=== PATIENT | female | born 1970 | race Caucasian/White ===

== ENCOUNTER 2016-12-14 15:47 | Emergency (ER) | payer OTHER ==
[~2016-12-14] VITALS: Ht 165.1 cm; Wt 86.5 kg
[~2016-12-14 15:47] MED LIST: ACCUPRIL10 MG PO; ACYCLOVIR400 MG PO; ATORVASTATIN CA20 MG PO; ATORVASTATIN CA40 MG PO; B COMPLETE1 EACH PO; CARAFATE100 MG/ML PO; CELEXA20 MG PO; CLARITIN,ALAVAR10 MG PO; CLOPIDOGREL75 MG PO; COLACE100 MG PO; CRESTOR20 MG PO; CYMBALTA30 MG PO; CYMBALTA60 MG PO; CYTOTEC200 MCG PO; DILAUDID2 MG PO; DONNATAL1 TABLET PO; DOXYCYCLINE HY100 M3 PO; FLEXERIL10 MG PO; FLOMAX0.4 MG PO; GABAPENTIN300 MG PO; GLUCOPHAGE500 MG PO; LORTAB 5-325 M1 EACH PO; LORTAB 5-500 T1 EACH PO; MEDROL DOSEPAK4 MG PO; MISOPROSTOL200 MCG PO; NEURONTIN300 MG PO; NORCO 5/3251 TABLET PO; NORTRIPTYLINE H10 MG PO; PAXIL10 MG PO; PAXIL20 MG; PAXIL40 MG PO; PERCOCET 5/31 TABLET PO; PREDNISONE10 MG PO; PREVACID30 MG PO; PROMETHAZINE HC25 M1 PO; SYNTHROID75 MCG PO; TOPAMAX100 MG PO; TOPAMAX25 MG PO; TRAMADOL HCL50 MG PO; ULTRAM50 MG PO; VALTREX PO; VALTREX1000 MG PO; VICODIN 5-3001 EACH PO; VITAMIN D31000 UNI2 PO; ZOFRAN ODT4 MG PO; ZOFRAN4 MG PO
[2016-12-14 16:10] LABS: HEMATOCRIT 43.6 % (36.0-46.0); MCH 31.2 PG (29.0-34.0); MCHC 34.9 G/DL (30.0-36.0); MCV 89.5 FL (83-99); MEAN PLAT.VOLUME 10.2 uM^3 (9.5-12.4); PLATELET COUNT 252 K/uL (156-360); RBC DIS.WIDTH-CV 12.7 % (11.8-14.6); RBC DIS.WIDTH-SD 40.6 % (39-53); RED BLOOD COUNT 4.87 M/uL (3.80-5.20); WHITE BLOOD COUNT 10.7 K/uL (4.1-10.2)
[2016-12-14 16:19] LABS: CHLORIDE 107 mEq/L (99-109); SODIUM 137 mEq/L (136-147)
[2016-12-14 16:21] LABS: GLUCOSE 110 mg/dL (70-99)
[2016-12-14 16:22] LABS: ANION GAP 10 MEQ/L (2-14)
[2016-12-14 16:23] LABS: TOTAL BILIRUBIN 0.3 mg/dL (0.0-1.0)
[2016-12-14 16:24] LABS: ALKALINE PHOSPHATASE 130 IU/L (3-129)
[2016-12-14 16:25] LABS: GFR ESTIMATE (CALCULATED) > 59 mL/min/
[2016-12-14 16:26] LABS: UREA NITROGEN (BUN) 18 mg/dL (9-23)
[2016-12-14 16:33] LABS: QUANTITATIVE HCG < 4.0 MIU/ML
[2016-12-14 17:17] LABS: ADD MIUA? YES; BILIRUBIN NEGATIVE; BLOOD NEGATIVE; COLOR YELLOW ((YELLOW)); GLUCOSE (STRIP) NEGATIVE; KETONES NEGATIVE; LEUKOCYTES NEGATIVE; NITRITE NEGATIVE; PROTEIN (STRIP) NEGATIVE; SPECIFIC GRAVITY 1.016 (1.000-1.030); UROBILINOGEN 0.2 MG/DL (0.2-1.0)
[2016-12-14 17:27] LABS: BACTERIA NONE SEEN /HPF; CALCIUM OXALATE CRYSTALS 3+ /HPF; EPITHELIAL CELLS 1+ /HPF; MUCUS TRACE /LPF; RED BLOOD CELLS 0-5 /HPF (0-5); UCUL ADDED? NO; WHITE BLOOD CELLS 0-5 /HPF (0-5)
[2016-12-14] MEDS ORDERED: ZOFRAN4 MG PO (18:49)
[2016-12-14 19:10] VITALS: BP 113/85
== END 2016-12-14 19:12 | disposition home or self-care (01) ==
LOC: EME 15:47
DX: R10.9 Unspecified abdominal pain (principal); E11.9 Type 2 diabetes mellitus without complications; E78.5 Hyperlipidemia, unspecified; I10 Essential (primary) hypertension; Z87.891 Personal history of nicotine dependence; K21.9 Gastro-esophageal reflux disease without esophagitis; E07.9 Disorder of thyroid, unspecified; F17.200 Nicotine dependence, unspecified, uncomplicated
CPT/HCPCS: 74176; 80053; 81003; 84702; 85027; 99281; 99285; J2270; J2405

== ENCOUNTER 2016-12-26 13:43 | Emergency (ER) | payer OTHER ==
[~2016-12-26] VITALS: Ht 165.1 cm; Wt 87.2 kg
[2016-12-26 15:00] LABS: HEMATOCRIT 43.5 % (36.0-46.0); MCHC 34.3 G/DL (30.0-36.0); MCV 90.6 FL (83-99); MEAN PLAT.VOLUME 10.1 uM^3 (9.5-12.4); PLATELET COUNT 303 K/uL (156-360); RBC DIS.WIDTH-CV 11.9 % (11.8-14.6); WHITE BLOOD COUNT 9.2 K/uL (4.1-10.2)
[2016-12-26 15:10] LABS: CHLORIDE 106 mEq/L (99-109); SODIUM 138 mEq/L (136-147)
[2016-12-26 15:12] LABS: GLUCOSE 83 mg/dL (70-99)
[2016-12-26 15:14] LABS: ANION GAP 10 MEQ/L (2-14); TOTAL BILIRUBIN 0.4 mg/dL (0.0-1.0)
[2016-12-26 15:16] LABS: ALKALINE PHOSPHATASE 140 IU/L (3-129); GFR ESTIMATE (CALCULATED) > 59 mL/min/
[2016-12-26 15:17] LABS: UREA NITROGEN (BUN) 10 mg/dL (9-23)
[2016-12-26 15:25] LABS: QUANTITATIVE HCG < 4.0 MIU/ML
[2016-12-26 15:33] LABS: ADD MIUA? NO; BILIRUBIN NEGATIVE; BLOOD NEGATIVE; COLOR STRAW ((YELLOW)); GLUCOSE (STRIP) NEGATIVE; KETONES NEGATIVE; LEUKOCYTES NEGATIVE; NITRITE NEGATIVE; PROTEIN (STRIP) NEGATIVE; SPECIFIC GRAVITY 1.004 (1.000-1.030); UCUL ADDED? NO; UROBILINOGEN 0.2 MG/DL (0.2-1.0)
[2016-12-26 19:00] VITALS: BP 121/78
[2016-12-26] MEDS ORDERED: ZOFRAN4 MG PO (19:11)
[2016-12-26] MEDS ORDERED: ULTRAM50 MG PO (19:11)
== END 2016-12-26 19:47 | disposition home or self-care (01) ==
LOC: EME 13:43
DX: R10.31 Right lower quadrant pain (principal); E11.9 Type 2 diabetes mellitus without complications; E78.5 Hyperlipidemia, unspecified; I10 Essential (primary) hypertension; K21.9 Gastro-esophageal reflux disease without esophagitis; E07.9 Disorder of thyroid, unspecified; Z87.442 Personal history of urinary calculi; F17.200 Nicotine dependence, unspecified, uncomplicated
CPT/HCPCS: 76770; 76856; 80053; 81003; 84702; 85027; 93976; 99281; 99284; J3010; J7120

== ENCOUNTER 2017-06-10 16:11 | Emergency (ER) | payer OTHER ==
[~2017-06-10] VITALS: Ht 165.1 cm; Wt 89.9 kg
[2017-06-10 17:24] LABS: HEMATOCRIT 40.2 % (36.0-46.0); MCH 31.2 PG (29.0-34.0); MCHC 34.6 G/DL (30.0-36.0); MCV 90.3 FL (83-99); MEAN PLAT.VOLUME 10.1 uM^3 (9.5-12.4); PLATELET COUNT 234 K/uL (156-360); RED BLOOD COUNT 4.45 M/uL (3.80-5.20); WHITE BLOOD COUNT 8.5 K/uL (4.1-10.2)
[2017-06-10 17:33] LABS: CHLORIDE 106 mEq/L (99-109); POTASSIUM 4.4 mEq/L (3.7-5.4); SODIUM 140 mEq/L (136-147)
[2017-06-10 17:35] LABS: GLUCOSE 86 mg/dL (70-99)
[2017-06-10 17:36] LABS: ANION GAP 9 MEQ/L (2-14)
[2017-06-10 17:39] LABS: GFR ESTIMATE (CALCULATED) > 59 mL/min/; UREA NITROGEN (BUN) 7 mg/dL (9-23)
[2017-06-10 19:26] VITALS: BP 134/74
== END 2017-06-10 19:39 | disposition home or self-care (01) ==
LOC: EME 16:11
DX: G43.909 Migraine, unspecified, not intractable, without status migrainosus (principal); I10 Essential (primary) hypertension; E11.9 Type 2 diabetes mellitus without complications; E78.5 Hyperlipidemia, unspecified; K21.9 Gastro-esophageal reflux disease without esophagitis; E07.9 Disorder of thyroid, unspecified; E55.9 Vitamin D deficiency, unspecified; F32.9 Major depressive disorder, single episode, unspecified; F41.9 Anxiety disorder, unspecified; F17.200 Nicotine dependence, unspecified, uncomplicated; Z88.0 Allergy status to penicillin
CPT/HCPCS: 70450; 71020; 80048; 85027; 93005; 99281; 99284; J0780; J7050

== ENCOUNTER 2017-08-22 13:09 | Emergency (ER) | payer OTHER ==
[~2017-08-22] VITALS: Ht 165.1 cm; Wt 89.6 kg
[2017-08-22 13:58] LABS: ADD MIUA? NO; BILIRUBIN NEGATIVE; BLOOD NEGATIVE; COLOR STRAW ((YELLOW)); GLUCOSE (STRIP) NEGATIVE; KETONES NEGATIVE; LEUKOCYTES NEGATIVE; NITRITE NEGATIVE; PROTEIN (STRIP) NEGATIVE; SPECIFIC GRAVITY 1.004 (1.000-1.030); UCUL ADDED? NO; UROBILINOGEN 0.2 MG/DL (0.2-1.0)
[2017-08-22 14:21] LABS: HEMATOCRIT 41.5 % (36.0-46.0); MCH 31.2 PG (29.0-34.0); MCHC 34.5 G/DL (30.0-36.0); MCV 90.6 FL (83-99); PLATELET COUNT 252 K/uL (156-360); RBC DIS.WIDTH-CV 12.3 % (11.8-14.6); RBC DIS.WIDTH-SD 40.5 % (39-53); RED BLOOD COUNT 4.58 M/uL (3.80-5.20); WHITE BLOOD COUNT 7.2 K/uL (4.1-10.2)
[2017-08-22 14:31] LABS: CHLORIDE 105 mEq/L (99-109); SODIUM 136 mEq/L (136-147)
[2017-08-22 14:33] LABS: GLUCOSE 92 mg/dL (70-99)
[2017-08-22 14:34] LABS: ANION GAP 8 MEQ/L (2-14)
[2017-08-22 14:37] LABS: GFR ESTIMATE (CALCULATED) > 59 mL/min/; UREA NITROGEN (BUN) 9 mg/dL (9-23)
[2017-08-22] MEDS ORDERED: NORCO 5/3251 TABLET PO (16:46)
[2017-08-22] MEDS ORDERED: BENTYL20 MG PO (16:46)
[2017-08-22 17:04] VITALS: BP 00/00
== END 2017-08-22 17:05 | disposition home or self-care (01) ==
LOC: EME 13:09
DX: R10.31 Right lower quadrant pain (principal); R11.0 Nausea; E11.9 Type 2 diabetes mellitus without complications; E78.5 Hyperlipidemia, unspecified; I10 Essential (primary) hypertension; F32.9 Major depressive disorder, single episode, unspecified; F17.200 Nicotine dependence, unspecified, uncomplicated; Z87.442 Personal history of urinary calculi; K21.9 Gastro-esophageal reflux disease without esophagitis; F41.9 Anxiety disorder, unspecified; Z88.1 Allergy status to other antibiotic agents; Z88.8 Allergy status to other drugs, medicaments and biological substances
CPT/HCPCS: 74177; 80048; 81003; 85027; 99281; 99284; J1885; J2405; J7040

== ENCOUNTER 2017-10-23 21:23 | Emergency (ER) | payer OTHER ==
[~2017-10-23] VITALS: Ht 165.1 cm; Wt 92.4 kg
[~2017-10-23 21:23] MED LIST changes: +BENTYL20 MG PO
[2017-10-23] MEDS ORDERED: NORCO 5/3251 TABLET PO (22:51)
[2017-10-23 23:11] VITALS: BP 117/83
== END 2017-10-23 23:10 | disposition home or self-care (01) ==
LOC: EXP 21:23 → EME 21:23 → EXP 23:10
DX: M25.561 Pain in right knee (principal); G89.29 Other chronic pain; G43.909 Migraine, unspecified, not intractable, without status migrainosus; E11.9 Type 2 diabetes mellitus without complications; K21.9 Gastro-esophageal reflux disease without esophagitis; Z88.8 Allergy status to other drugs, medicaments and biological substances; Z88.0 Allergy status to penicillin; Z88.6 Allergy status to analgesic agent; F17.200 Nicotine dependence, unspecified, uncomplicated
CPT/HCPCS: 73564; 99281; 99283

== ENCOUNTER 2018-02-07 16:17 | Emergency (ER) | payer OTHER ==
[~2018-02-07] VITALS: Ht 165.1 cm; Wt 92.5 kg
[2018-02-07 17:00] LABS: HEMATOCRIT 43.3 % (36.0-46.0); HEMOGLOBIN 15.3 G/DL (11.9-15.5); MCH 32.3 PG (29.0-34.0); MCHC 35.3 G/DL (30.0-36.0); MCV 91.4 FL (83-99); PLATELET COUNT 298 K/uL (156-360); RBC DIS.WIDTH-CV 12.4 % (11.8-14.6); RBC DIS.WIDTH-SD 41.9 % (39-53); RED BLOOD COUNT 4.74 M/uL (3.80-5.20); WHITE BLOOD COUNT 11.6 K/uL (4.1-10.2)
[2018-02-07 17:24] LABS: ALBUMIN 4.4 G/DL (3.2-4.8); CHLORIDE 104 MEQ/L (99-109); POTASSIUM 3.9 MEQ/L (3.7-5.4); SODIUM 137 MEQ/L (136-147); TOTAL BILIRUBIN 0.2 MG/DL (0.0-1.0)
[2018-02-07 17:30] LABS: ALKALINE PHOSPHATASE 150 IU/L (3-129); ALT (GPT) 33 IU/L (3-49); AST (GOT) 26 IU/L (2-34); CREATININE 0.8 MG/DL (0.6-1.3); GFR ESTIMATE (CALCULATED) > 59 mL/min/; GLUCOSE 101 mg/dL (70-99); TOTAL PROTEIN 6.8 G/DL (6.4-8.3); UREA NITROGEN (BUN) 14 mg/dL (9-23)
[2018-02-07 17:50] LABS: APPEARANCE SL.HAZY ((CLEAR)); BILIRUBIN NEGATIVE; BLOOD NEGATIVE; COLOR YELLOW ((YELLOW)); GLUCOSE (STRIP) NEGATIVE; KETONES 5; LEUKOCYTES NEGATIVE; NITRITE NEGATIVE; PROTEIN (STRIP) 30; SPECIFIC GRAVITY 1.026 (1.000-1.030); UROBILINOGEN 0.2 MG/DL (0.2-1.0)
[2018-02-07 17:59] LABS: QUANTITATIVE HCG < 4.0 MIU/ML
[2018-02-07 18:04] LABS: BACTERIA RARE /HPF; CALCIUM OXALATE CRYSTALS 4+ /HPF; EPITHELIAL CELLS RARE /HPF; MUCUS TRACE /LPF; UCUL ADDED? NO; WHITE BLOOD CELLS 0-5 /HPF (0-5)
[2018-02-07] MEDS ORDERED: LORTAB 5-325 M1 EACH PO (20:02)
[2018-02-07 20:20] VITALS: BP 108/63
== END 2018-02-07 20:22 | disposition home or self-care (01) ==
LOC: EME 16:17
DX: R10.9 Unspecified abdominal pain (principal); R31.9 Hematuria, unspecified; R16.0 Hepatomegaly, not elsewhere classified; K76.0 Fatty (change of) liver, not elsewhere classified; E11.9 Type 2 diabetes mellitus without complications; I10 Essential (primary) hypertension; K21.9 Gastro-esophageal reflux disease without esophagitis; E78.5 Hyperlipidemia, unspecified; E07.9 Disorder of thyroid, unspecified; F41.9 Anxiety disorder, unspecified; F32.9 Major depressive disorder, single episode, unspecified; F31.9 Bipolar disorder, unspecified; F17.200 Nicotine dependence, unspecified, uncomplicated; Z87.442 Personal history of urinary calculi; Z88.1 Allergy status to other antibiotic agents; Z88.0 Allergy status to penicillin; Z88.6 Allergy status to analgesic agent; Z91.048 Other nonmedicinal substance allergy status; Z88.8 Allergy status to other drugs, medicaments and biological substances
CPT/HCPCS: 74176; 80053; 81003; 84702; 85027; 99281; 99284; J2405; J7030

== ENCOUNTER 2018-03-14 19:23 | Emergency (ER) | payer OTHER ==
[~2018-03-14] VITALS: Ht 165.1 cm; Wt 93.0 kg
[2018-03-14 20:35] LABS: HEMATOCRIT 45.1 % (36.0-46.0); HEMOGLOBIN 15.8 G/DL (11.9-15.5); MCH 31.7 PG (29.0-34.0); MCV 90.6 FL (83-99); PLATELET COUNT 291 K/uL (156-360); RBC DIS.WIDTH-CV 12.5 % (11.8-14.6); RBC DIS.WIDTH-SD 41.7 % (39-53); RED BLOOD COUNT 4.98 M/uL (3.80-5.20); WHITE BLOOD COUNT 13.4 K/uL (4.1-10.2)
[2018-03-14 20:37] LABS: ALBUMIN 4.4 g/dL (3.2-4.8); CHLORIDE 104 mEq/L (99-109); POTASSIUM 4.9 mEq/L (3.7-5.4); SODIUM 139 mEq/L (136-147)
[2018-03-14 20:38] LABS: APPEARANCE CLEAR ((CLEAR)); BILIRUBIN NEGATIVE; BLOOD NEGATIVE; COLOR YELLOW ((YELLOW)); GLUCOSE (STRIP) NEGATIVE; KETONES NEGATIVE; LEUKOCYTES NEGATIVE; NITRITE NEGATIVE; PROTEIN (STRIP) NEGATIVE; SPECIFIC GRAVITY 1.017 (1.000-1.030); UCUL ADDED? NO; UROBILINOGEN 0.2 MG/DL (0.2-1.0)
[2018-03-14 20:39] LABS: GLUCOSE 92 mg/dL (70-99); TOTAL PROTEIN 7.6 g/dL (6.4-8.3)
[2018-03-14 20:41] LABS: TOTAL BILIRUBIN 0.3 mg/dL (0.0-1.0)
[2018-03-14 20:43] LABS: ALKALINE PHOSPHATASE 172 IU/L (3-129); CREATININE 0.8 mg/dL (0.6-1.3); GFR ESTIMATE (CALCULATED) > 59 mL/min/
[2018-03-14 20:44] LABS: UREA NITROGEN (BUN) 7 mg/dL (9-23)
[2018-03-14 20:45] LABS: AST (GOT) 25 IU/L (2-34)
[2018-03-14 20:46] LABS: ALT (GPT) 36 IU/L (3-49); LIPASE 32 U/L (1.0-51.0)
[2018-03-14 20:52] LABS: QUANTITATIVE HCG < 4.0 MIU/ML
[2018-03-14] MEDS ORDERED: COLACE100 MG PO (21:34)
[2018-03-14] MEDS ORDERED: BENTYL10 MG PO (21:34)
[2018-03-14 22:55] VITALS: BP 134/84
== END 2018-03-14 22:57 | disposition home or self-care (01) ==
LOC: EME 19:23
DX: R10.31 Right lower quadrant pain (principal); E11.9 Type 2 diabetes mellitus without complications; E78.5 Hyperlipidemia, unspecified; I10 Essential (primary) hypertension; Z87.442 Personal history of urinary calculi; K21.9 Gastro-esophageal reflux disease without esophagitis; Z90.710 Acquired absence of both cervix and uterus; F32.9 Major depressive disorder, single episode, unspecified; F41.9 Anxiety disorder, unspecified; E55.9 Vitamin D deficiency, unspecified; E07.9 Disorder of thyroid, unspecified; F17.200 Nicotine dependence, unspecified, uncomplicated; Z88.0 Allergy status to penicillin; Z88.8 Allergy status to other drugs, medicaments and biological substances
CPT/HCPCS: 74177; 80053; 81003; 83690; 84702; 85027; 99281; 99284; J2405; J3010; J7030